=== PATIENT | female | born 1980 | race Caucasian/White ===

== ENCOUNTER 2020-10-30 17:36 | Emergency (ER) | payer BC ==
--- NOTE | 2020-10-30 18:07 | EDM.PDOC ---
ED HPI GENERAL MEDICAL PROBLEM - General Chief Complaint: ENT Problem Stated Complaint: SWALLOWED A POP CAN TOP Time Seen by Provider: 10/30/20 18:00 Source of Information: Reports: Patient History Limitations: Reports: No Limitations - History of Present Illness INITIAL COMMENTS - FREE TEXT/NARRATIVE: This is a 40 year old female presenting after accidentally swallowing a pop can tab. She states she was playing with it and it accidentally broke off and fell into the can. She thought she would be able to notice if it got in her mouth, but she didn't and accidentally swallowed it. She reports some mild discomfort in her neck area, but no significant pain. She did not have any coughing, choking, or aspiration. She is able to swallow her secretions without difficulty, but has not tried to eat or drink anything. No change in voice. no other complaints. - Related Data Allergies Allergy/AdvReac Type Severity Reaction Status Date / Time No Known Allergies Allergy Verified 10/30/20 17:53 Home Meds: Home Meds Levothyroxine 150 mcg PO ACBREAKFAST 10/30/20 [History] Past Medical History HEENT History: Reports: Impaired Vision SOCIAL ECONOMIST History: Reports: Endocrine/Metabolic History: Reports: Hypothyroidism - Past Surgical History Head Surgeries/Procedures: Reports: None HEENT Surgical History: Reports: LASIK Dermatological Surgical History: Reports: None Social & Family History - Tobacco Use Tobacco Use Status *Q: Never Tobacco User Second Hand Smoke Exposure: No - Caffeine Use Caffeine Use: Reports: Coffee - Recreational Drug Use Recreational Drug Use: No ED ROS ENT - Review of Systems Review Of Systems: Comprehensive ROS is negative, except as noted in HPI. ED EXAM, ENT - Physical Exam Exam: See Below Exam Limited By: No Limitations General Appearance: Alert, WD/WN, No Apparent Distress Mouth/Throat: Normal Inspection, Normal Gums, Normal Lips, Normal Oropharynx, Other (No voice changes.). No: Pharyngeal Erythema, Throat Swelling, Tongue Swelling, Tonsillar Erythema, Tonsillar Exudates, Tonsillar Swelling, Uvular Deviation Head: Atraumatic, Normocephalic Neck: Supple, Non-Tender, Full Range of Motion Respiratory/Chest: No Respiratory Distress, Lungs Clear, Normal Breath Sounds, No Accessory Muscle Use. No: Respiratory Distress, Stridor Cardiovascular: Regular Rate, Rhythm GI/Abdominal: Soft, Non-Tender Extremities: Normal Range of Motion Neurological: Alert, Oriented Psychiatric: Normal Affect, Normal Mood Skin: Warm, Dry Course - Vital Signs Last Recorded V/S: Last Vital Signs Temp 98.1 F 10/30/20 17:54 Pulse 116 H 10/30/20 17:54 Resp 16 10/30/20 17:54 BP 151/96 H 10/30/20 17:54 Pulse Ox 94 L 10/30/20 17:54 - Orders/Labs/Meds Orders: Active Orders 24 hr Category Date Time Status CXR [Chest 2V] [CR] Stat Exams 10/30/20 18:11 Ordered Departure - Departure Time of Disposition: 18:27 Disposition: Home, Self-Care 01 Condition: Good Clinical Impression: Foreign body, swallowed - Discharge Information Instructions: Swallowed Foreign Body, Adult Referrals: PCP,None [Primary Care Provider] - Forms: ED Department Discharge Additional Instructions: Eat and drink as you normally would. The tab should pass in your stool in a few days. Return for re-evaluation if you develop difficulty swallowing, abdominal pain, vomiting, or other concerning symptoms. Sepsis Event Note (ED) - Evaluation Sepsis Screening Result: No Definite Risk - Focused Exam Vital Signs: Vital Signs Temp Pulse Resp BP Pulse Ox 10/30/20 17:54 98.1 F 116 H 16 151/96 H 94 L 10/30/20 17:53 98.1 F 116 H 16 151/96 H 94 L - Problem List Review Problem List Initiated/Reviewed/Updated: Yes - My Orders Last 24 Hours: My Active Orders 10/30/20 18:11 CXR [Chest 2V] [CR] Stat - Assessment/Plan Last 24 Hours: My Active Orders 10/30/20 18:11 CXR [Chest 2V] [CR] Stat Plan: This is a 40 year old female presenting after accidentally swallowing a pop can tab. She has some very mild discomfort in her throat/upper esophagus, but otherwise has no complaints. There is no evidence of aspiration or airway co mpromise. She has no stridor or voice changes. The pop can tab is not visualized on CXR. I suspect that she likely swallowed the tab and it is already in her stomach and will pass on its own. She is able to swallow without difficulty. She is appropriate for discharge home. She can eat and drink as she normally would. She was instructed to return to the ED if she develops difficulty swallowing, abdominal pain, vomiting, or other concerning symptoms.
--- NOTE | 2020-11-02 09:45 | CR ---
CHEST: 2 view CLINICAL HISTORY:Possible ingested foreign body COMPARISON:None FINDINGS: The heart size, pulmonary vascularity and hilar structures are normal. No infiltrate effusion or pneumothorax is seen. There is no radiopaque foreign body identified in the visualized oropharynx or mediastinum. No metallic foreign body is identified in the upper abdomen IMPRESSION: No acute cardiopulmonary process. No foreign body seen
== END 2020-10-30 18:46 | disposition home or self-care (01) ==
LOC: JP.ED 17:36
DX: T18.128A Food in esophagus causing other injury, initial encounter (principal); E03.9 Hypothyroidism, unspecified; Z79.899 Other long term (current) drug therapy
CPT/HCPCS: 71046; 71046-26; 99282; 99283-25